=== PATIENT | male | born 1980 | race Native Hawaiian/Other Pacific Islander ===

== ENCOUNTER 2016-10-13 23:51 | Emergency (ER) | payer OTHER ==
[2016-10-13 23:56] VITALS: BP 117/83; PULSE 76; RESP 14; TEMP 97.7; O2SAT 96
--- NOTE | 2016-10-14 21:04 | C.PDOC ---
Chief Complaint (Nursing): Headache Past Medical History Vital Signs: Last Vital Signs Temp 97.7 F 10/13/16 23:53 Pulse 76 10/13/16 23:53 Resp 14 10/13/16 23:53 BP 117/83 10/13/16 23:53 Pulse Ox 96 10/13/16 23:53 - [facility] Procedures TETANUS TOXOID ADMINIST (12/26/12) Family History: States: Unknown Family Hx - Social History Hx Tobacco Use: No Hx Alcohol Use: Yes (''Rarely'') Hx Substance Use: No - Immunization History Hx Tetanus Toxoid Vaccination: No Hx Influenza Vaccination: Yes (2015) Hx Pneumococcal Vaccination: No ED Course And Treatment O2 Sat by Pulse Oximetry: 96 Disposition Counseled Patient/Family Regarding: Diagnosis - Disposition Referrals: [facility] [Outside] Disposition Time: 06:15 Condition: IMPROVED Instructions: Migraine Headache (ED) - POA Present On Arrival: None - Clinical Impression Clinical Impression: Headache, Migraine
== END 2016-10-14 06:30 | disposition home or self-care (01) ==
LOC: C.ER 23:51
DX: G43.909 Migraine, unspecified, not intractable, without status migrainosus (principal)